=== PATIENT | male | born 1980 | race Caucasian/White ===

== ENCOUNTER 2016-11-08 16:49 | Inpatient (IN) | payer MEDICAID ==
[~2016-11-08] VITALS: Ht 180.3 cm; Wt 84.4 kg
[2016-11-08] MEDS ORDERED: PROZ10 PO (16:51)
[2016-11-08 17:55] LABS: BASOPHILS % (AUTO) 0.3 % (0.0-2.0); EOSINOPHILS % (AUTO) 1.5 % (1.0-6.0); HEMATOCRIT 45.7 % (41-53); HEMOGLOBIN 14.9 g/dL (13.5-17.5); LYMPHOCYTES # (AUTO) 2.6 K/uL (1.0-4.8); LYMPHOCYTES % (AUTO) 18.7 % (22.0-44.0); MEAN CORPUSCULAR HGB CONC 32.6 G/dL (31.0-37.0); MEAN CORPUSCULAR VOLUME 86 fL (80-100); MONOCYTES # (AUTO) 0.6 K/uL (0.1-1.0); MONOCYTES % (AUTO) 4.5 % (2.0-9.0); NEUTROPHILS # (AUTO) 10.2 K/uL (1.8-7.7); PLATELET COUNT (AUTO) 219 K/uL (150-450); RED BLOOD CELL COUNT(AUTO) 5.32 MIL/uL (4.50-5.90); RED CELL DISTRIBUTION WIDTH 13.2 % (11.5-14.5); WHITE BLOOD COUNT (AUTO) 13.7 K/uL (4.5-11.0)
[2016-11-08 18:00] LABS: ANION GAP 8 mmol/L (8-16); CALCIUM, TOTAL 9.3 mg/dL (8.8-10.5); CARBON DIOXIDE 29 mmol/L (22-29); CHLORIDE 100 mmol/L (98-107); CREATININE 1.13 mg/dL (0.60-1.30); GLOMERULAR FILTR. RATE CALC > 60 mL/min (>60); POTASSIUM 4.3 mmol/L (3.5-5.1); SODIUM SERUM 137 mmol/L (136-145); UREA NITROGEN, BLOOD 13 mg/dL (7-18)
[2016-11-08 18:06] LABS: ALANINE AMINOTRANSFERASE 32 U/L (12-78); ALBUMIN 4.3 g/dL (3.4-5.0); ASPARTATE AMINOTRANSFERASE 23 U/L (15-37); BILIRUBIN,TOTAL 0.5 mg/dL (0.1-1.0); TOTAL PROTEIN, SERUM 7.7 g/dL (6.4-8.2)
[2016-11-08] MEDS: FLUoxetine HCL 10 MG CAPSULE PO SCH (20:21)
[2016-11-08] MEDS: LORazepam 2 MG TABLET PO PRN (20:23)
[2016-11-08 21:11] VITALS: BP 121/72
[2016-11-09 08:00] VITALS: BP 119/78
[2016-11-09] MEDS: FLUoxetine HCL 10 MG CAPSULE PO SCH (09:36)
[2016-11-09] MEDS: LORazepam 2 MG TABLET PO PRN ×2 (09:37→17:55)
[2016-11-09 16:47] VITALS: BP 126/93
[2016-11-09] MEDS: HALOPERIDOL 5 MG TABLET PO PRN (17:55)
[2016-11-10 08:01] VITALS: BP 120/78
[2016-11-10] MEDS: LORazepam 2 MG TABLET PO PRN ×2 (09:21→17:42)
[2016-11-10] MEDS: FLUoxetine HCL 10 MG CAPSULE PO SCH (09:21)
[2016-11-10] MEDS: HALOPERIDOL 5 MG TABLET PO PRN (19:56)
[2016-11-10 20:45] VITALS: BP 119/67
[2016-11-10] MEDS: ZOLPIDEM TARTRATE 10 MG TABLET PO PRN (21:34)
[2016-11-11] MEDS: HALOPERIDOL 5 MG TABLET PO PRN (09:39)
[2016-11-11] MEDS: LORazepam 2 MG TABLET PO PRN ×2 (09:39→16:06)
[2016-11-11] MEDS: FLUoxetine HCL 10 MG CAPSULE PO SCH (09:39)
[2016-11-11 11:00] VITALS: BP 107/59
[2016-11-11 16:51] VITALS: BP 118/71
[2016-11-12 09:23] VITALS: BP 109/63
[2016-11-12] MEDS: FLUoxetine HCL 10 MG CAPSULE PO SCH (09:24)
[2016-11-12] MEDS: LORazepam 2 MG TABLET PO PRN ×3 (09:24→19:10)
[2016-11-12] MEDS: HALOPERIDOL 5 MG TABLET PO PRN (14:47)
[2016-11-12] MEDS: ACETAMINOPHEN 325 MG TABLET PO PRN (16:43)
[2016-11-12 16:56] VITALS: BP 141/80
[2016-11-13 09:03] VITALS: BP 114/54
[2016-11-13 09:08] VITALS: BP 139/73
[2016-11-13] MEDS: FLUoxetine HCL 10 MG CAPSULE PO SCH (09:09)
[2016-11-13] MEDS: LORazepam 2 MG TABLET PO PRN ×3 (09:09→17:41)
[2016-11-13] MEDS: ACETAMINOPHEN 325 MG TABLET PO PRN (13:39)
[2016-11-13 20:10] VITALS: BP 122/74
[2016-11-13] MEDS: ZOLPIDEM TARTRATE 10 MG TABLET PO PRN (21:03)
[2016-11-14] MEDS: LORazepam 2 MG TABLET PO PRN (08:41)
[2016-11-14] MEDS: FLUoxetine HCL 10 MG CAPSULE PO SCH (08:41)
[2016-11-14 10:05] VITALS: BP 130/71
[2017-04-03] MEDS ORDERED: HYDR-4031 PO (12:59)
[2017-04-03] MEDS ORDERED: ARIP2 PO (12:59)
[2017-04-05] MEDS ORDERED: ARIP2 PO (16:34)
[2017-04-05] MEDS ORDERED: FLUO-191 PO (16:34)
== END 2016-11-14 14:15 | disposition home or self-care (01) | DRG 751 ==
LOC: EMS 16:52 → 3EI 20:51
DX: F33.2 Major depressive disorder, recurrent severe without psychotic features (principal); R45.851 Suicidal ideations; F17.210 Nicotine dependence, cigarettes, uncomplicated; Z79.899 Other long term (current) drug therapy; Z81.8 Family history of other mental and behavioral disorders
CPT/HCPCS: 99285; G0480

== ENCOUNTER 2016-11-18 20:38 | Emergency (ER) | payer MEDICAID ==
[~2016-11-18] VITALS: Ht 180.3 cm; Wt 88.6 kg
[~2016-11-18 20:38] MED LIST: PROZ10 PO
[2016-11-18 21:34] LABS: BASOPHILS % (AUTO) 0.5 % (0.0-2.0); EOSINOPHILS % (AUTO) 3.1 % (1.0-6.0); HEMATOCRIT 41.7 % (41-53); HEMOGLOBIN 13.6 g/dL (13.5-17.5); LYMPHOCYTES # (AUTO) 3.7 K/uL (1.0-4.8); LYMPHOCYTES % (AUTO) 31.6 % (22.0-44.0); MEAN CORPUSCULAR HEMOGLOBIN 27.9 pg (26.0-34.0); MEAN CORPUSCULAR HGB CONC 32.7 G/dL (31.0-37.0); MEAN CORPUSCULAR VOLUME 85 fL (80-100); MONOCYTES # (AUTO) 0.8 K/uL (0.1-1.0); MONOCYTES % (AUTO) 7.1 % (2.0-9.0); NEUTROPHILS # (AUTO) 6.8 K/uL (1.8-7.7); NEUTROPHILS % (AUTO) 57.7 % (40.0-70.0); PLATELET COUNT (AUTO) 231 K/uL (150-450); RED BLOOD CELL COUNT(AUTO) 4.89 MIL/uL (4.50-5.90); RED CELL DISTRIBUTION WIDTH 13.5 % (11.5-14.5); WHITE BLOOD COUNT (AUTO) 11.8 K/uL (4.5-11.0)
[2016-11-18 21:44] LABS: ANION GAP 12 mmol/L (8-16); CALCIUM, TOTAL 8.9 mg/dL (8.8-10.5); CARBON DIOXIDE 25 mmol/L (22-29); CHLORIDE 101 mmol/L (98-107); GLOMERULAR FILTR. RATE CALC > 60 mL/min (>60); POTASSIUM 3.3 mmol/L (3.5-5.1); SODIUM SERUM 138 mmol/L (136-145); UREA NITROGEN, BLOOD 22 mg/dL (7-18)
[2016-11-18 21:50] LABS: ALANINE AMINOTRANSFERASE 51 U/L (12-78); ASPARTATE AMINOTRANSFERASE 61 U/L (15-37); BILIRUBIN,TOTAL 0.6 mg/dL (0.1-1.0); TOTAL PROTEIN, SERUM 7.2 g/dL (6.4-8.2)
[2016-11-19] MEDS ORDERED: LORazepam 2 MG TABLET PO ONE (01:15)
[2016-11-19 01:26] VITALS: BP 126/80
[2017-04-03] MEDS ORDERED: HYDR-4031 PO (12:59)
[2017-04-03] MEDS ORDERED: ARIP2 PO (12:59)
[2017-04-05] MEDS ORDERED: FLUO-191 PO (16:34)
[2017-04-05] MEDS ORDERED: ARIP2 PO (16:34)
== END 2016-11-19 01:27 | disposition home or self-care (01) ==
LOC: EMS 20:39
DX: F41.9 Anxiety disorder, unspecified (principal); F32.9 Major depressive disorder, single episode, unspecified; F15.10 Other stimulant abuse, uncomplicated; F14.10 Cocaine abuse, uncomplicated; F17.210 Nicotine dependence, cigarettes, uncomplicated
CPT/HCPCS: 36415; 80053; 80307; 85025; 99284; G0480

== ENCOUNTER 2017-11-24 15:11 | Emergency (ER) | payer MEDICAID ==
[~2017-11-24] VITALS: Ht 193 cm; Wt 100.0 kg
[~2017-11-24 15:11] MED LIST changes: +ARIP2 PO; +FLUO-191 PO; -PROZ10 PO
[2017-11-24] MEDS ORDERED: SODIUM CHLORIDE 0.9% 1,000 ML IV ONE (17:00)
[2017-11-24] MEDS ORDERED: KETOROLAC TROMETHAMINE 30 MG/ML VIAL IVP ONE (17:00)
[2017-11-24 17:18] LABS: BASOPHILS % (AUTO) 0.9 % (0.0-2.0); EOSINOPHILS % (AUTO) 2.3 % (1.0-6.0); HEMATOCRIT 41.3 % (41-53); HEMOGLOBIN 13.8 g/dL (13.5-17.5); LYMPHOCYTES % (AUTO) 33.7 % (22.0-44.0); MEAN CORPUSCULAR HEMOGLOBIN 27.7 pg (26.0-34.0); MEAN CORPUSCULAR HGB CONC 33.4 G/dL (31.0-37.0); MEAN CORPUSCULAR VOLUME 83 fL (80-100); MONOCYTES # (AUTO) 0.5 K/uL (0.1-1.0); MONOCYTES % (AUTO) 5.8 % (2.0-9.0); NEUTROPHILS % (AUTO) 57.3 % (40.0-70.0); PLATELET COUNT (AUTO) 218 K/uL (150-450); RED BLOOD CELL COUNT(AUTO) 4.98 MIL/uL (4.50-5.90); RED CELL DISTRIBUTION WIDTH 14.6 % (11.5-14.5)
[2017-11-24] MEDS ORDERED: LITH600 PO (17:26)
[2017-11-24] MEDS ORDERED: LITH300C3 PO (17:26)
[2017-11-24 17:29] LABS: ANION GAP 5 mmol/L (8-16); CALCIUM, TOTAL 8.6 mg/dL (8.8-10.5); CARBON DIOXIDE 30 mmol/L (22-29); CHLORIDE 104 mmol/L (98-107); CREATININE 0.93 mg/dL (0.60-1.30); GLOMERULAR FILTR. RATE CALC > 60 mL/min (>60); GLUCOSE,RANDOM 94 mg/dL (70-110); POTASSIUM 4.4 mmol/L (3.5-5.1); SODIUM SERUM 139 mmol/L (136-145); UREA NITROGEN, BLOOD 13 mg/dL (7-18)
[2017-11-24 17:35] LABS: ALANINE AMINOTRANSFERASE 35 U/L (12-78); ALBUMIN 3.9 g/dL (3.4-5.0); ALKALINE PHOSPHATASE 79 U/L (46-116); ASPARTATE AMINOTRANSFERASE 22 U/L (15-37); BILIRUBIN,TOTAL 0.5 mg/dL (0.1-1.0); TOTAL PROTEIN, SERUM 6.8 g/dL (6.4-8.2)
[2017-11-24 17:38] LABS: LITHIUM 0.22 mmol/L (0.60-1.20)
[2017-11-24] MEDS ORDERED: METOCLOPRAMIDE HCL 5 MG/ML 2 ML VIAL IVP ONE (19:00)
[2017-11-24] MEDS ORDERED: DiphenhydrAMINE HCL 50 MG/ML VIAL IVP ONE (19:00)
[2017-11-24 19:42] VITALS: BP 124/83
== END 2017-11-24 19:46 | disposition home or self-care (01) ==
LOC: EMS 15:15
DX: R51 Headache (principal); I10 Essential (primary) hypertension; Z59.0 Homelessness; F17.210 Nicotine dependence, cigarettes, uncomplicated
CPT/HCPCS: 36415; 70450; 80053; 80178; 85025; 93005; 96361; 96374; 96375; 99285; 99406; J1200; J1885; J2765; J7030

== ENCOUNTER 2017-11-27 22:17 | Emergency (ER) | payer MEDICAID ==
[~2017-11-27] VITALS: Ht 180.3 cm; Wt 82.7 kg
[~2017-11-27 22:17] MED LIST changes: +LITH300C3 PO; +LITH600 PO
[2017-11-27 22:42] VITALS: BP 129/77
[2017-11-27] MEDS ORDERED: ACETAMINOPHEN 500 MG TABLET PO ONE (22:45)
[2017-11-27] MEDS ORDERED: IBUPROFEN 800 MG TABLET PO ONE (22:45)
[2017-11-27] MEDS ORDERED: DEXAMETHASONE 4 MG TABLET PO ONE (22:45)
== END 2017-11-27 23:37 | disposition home or self-care (01) ==
LOC: EMS 22:19
DX: J02.9 Acute pharyngitis, unspecified (principal); Z59.0 Homelessness; F17.210 Nicotine dependence, cigarettes, uncomplicated; F15.10 Other stimulant abuse, uncomplicated
CPT/HCPCS: 87430; 99284; J8540

== ENCOUNTER 2017-12-15 21:25 | Emergency (ER) | payer MEDICAID ==
[~2017-12-15] VITALS: Ht 180.3 cm; Wt 82.5 kg
[2017-12-15 22:30] VITALS: BP 137/88
[2017-12-15] MEDS ORDERED: ALBUTEROL SULFATE 5 MG/ML 20 ML NEB SOLN [BULK] NEB ONE (22:30)
[2017-12-15] MEDS ORDERED: IPRATROPIUM BROMIDE 0.5 MG/2.5 ML NEB SOLUTION NEB ONE (22:30)
[2017-12-15] MEDS ORDERED: KETOROLAC TROMETHAMINE 60 MG/2 ML VIAL IM ONE (22:30)
[2017-12-15] MEDS ORDERED: ALBUTEROL SULFATE HFA 90 MCG/PUFF 8 GM INHALER IH ONE (23:00)
[2017-12-15] MEDS ORDERED: PredniSONE 20 MG TABLET PO ONE (23:15)
== END 2017-12-15 23:25 | disposition home or self-care (01) ==
LOC: EMS 21:27
DX: J06.9 Acute upper respiratory infection, unspecified (principal); J02.9 Acute pharyngitis, unspecified; H92.09 Otalgia, unspecified ear; R51 Headache; F17.210 Nicotine dependence, cigarettes, uncomplicated; F19.90 Other psychoactive substance use, unspecified, uncomplicated; F14.90 Cocaine use, unspecified, uncomplicated; Z59.0 Homelessness
CPT/HCPCS: 71045; 94640; 96372; 99284; 99406; J1885; J7512; J7611; J3535

== ENCOUNTER 2018-03-01 20:55 | Emergency (ER) | payer MEDICAID ==
[~2018-03-01] VITALS: Ht 180.3 cm; Wt 84.1 kg
[2018-03-01 21:28] VITALS: BP 136/86
== END 2018-03-01 22:16 | disposition home or self-care (01) ==
LOC: EMS 21:04
DX: J02.9 Acute pharyngitis, unspecified (principal); F32.9 Major depressive disorder, single episode, unspecified; F15.10 Other stimulant abuse, uncomplicated; F17.210 Nicotine dependence, cigarettes, uncomplicated; F14.10 Cocaine abuse, uncomplicated; Z59.0 Homelessness; Z79.899 Other long term (current) drug therapy
CPT/HCPCS: 99283

== ENCOUNTER 2019-03-19 11:18 | Emergency (ER) | payer MEDICAID ==
[~2019-03-19] VITALS: Ht 180.3 cm; Wt 95.5 kg
[2019-03-19] MEDS ORDERED: SERT50TA12 PO (11:29)
[2019-03-19] MEDS ORDERED: RISP1 PO (11:29)
[2019-03-19 12:34] LABS: BASOPHILS % (AUTO) 0.9 % (0.0-2.0); EOSINOPHILS % (AUTO) 2.7 % (1.0-6.0); HEMATOCRIT 42.7 % (41-53); LYMPHOCYTES # (AUTO) 2.8 K/uL (1.0-4.8); LYMPHOCYTES % (AUTO) 31.2 % (22.0-44.0); MEAN CORPUSCULAR HEMOGLOBIN 27.7 pg (26.0-34.0); MEAN CORPUSCULAR HGB CONC 32.9 G/dL (31.0-37.0); MEAN CORPUSCULAR VOLUME 84 fL (80-100); MONOCYTES # (AUTO) 0.5 K/uL (0.1-1.0); NEUTROPHILS # (AUTO) 5.4 K/uL (1.8-7.7); NEUTROPHILS % (AUTO) 59.2 % (40.0-70.0); PLATELET COUNT (AUTO) 246 K/uL (150-450); RED BLOOD CELL COUNT(AUTO) 5.08 MIL/uL (4.50-5.90); RED CELL DISTRIBUTION WIDTH 13.8 % (11.5-14.5)
[2019-03-19 12:45] LABS: ANION GAP 8 mmol/L (8-16); CALCIUM, TOTAL 8.4 mg/dL (8.8-10.5); CARBON DIOXIDE 28 mmol/L (22-29); CHLORIDE 104 mmol/L (98-107); CREATININE 1.01 mg/dL (0.60-1.30); GLOMERULAR FILTR. RATE CALC > 60 mL/min (>60); GLUCOSE,RANDOM 113 mg/dL (70-110); POTASSIUM 4.4 mmol/L (3.5-5.1); SODIUM SERUM 140 mmol/L (136-145); UREA NITROGEN, BLOOD 19 mg/dL (7-18)
[2019-03-19 12:47] LABS: AMPHET/METH SCREEN,URINE NEGATIVE (NEGATIVE); BARBITURATE SCREEN, URINE NEGATIVE (NEGATIVE); BENZODIAZEPINES SCREEN,URINE NEGATIVE (NEGATIVE); CANNABINOID SCREEN,URINE NEGATIVE (NEGATIVE); COCAINE SCREEN,URINE NEGATIVE (NEGATIVE); METHADONE SCREEN, URINE NEGATIVE (NEGATIVE); OPIATE SCREEN,URINE NEGATIVE (NEGATIVE)
[2019-03-19 12:48] LABS: PHENCYCLIDINE SCREEN,URINE NEGATIVE (NEGATIVE)
[2019-03-19 12:52] LABS: ALANINE AMINOTRANSFERASE 47 U/L (12-78); ALBUMIN 3.5 g/dL (3.4-5.0); ALKALINE PHOSPHATASE 96 U/L (46-116); ASPARTATE AMINOTRANSFERASE 22 U/L (15-37); BILIRUBIN,TOTAL 0.3 mg/dL (0.1-1.0); TOTAL PROTEIN, SERUM 6.6 g/dL (6.4-8.2)
[2019-03-19 13:40] VITALS: BP 115/65
== END 2019-03-19 13:50 | disposition home or self-care (01) ==
LOC: EMS 11:19
DX: F10.10 Alcohol abuse, uncomplicated (principal); F32.9 Major depressive disorder, single episode, unspecified; F17.210 Nicotine dependence, cigarettes, uncomplicated; F11.90 Opioid use, unspecified, uncomplicated; F15.90 Other stimulant use, unspecified, uncomplicated; Z59.0 Homelessness; Z79.899 Other long term (current) drug therapy; Y90.0 Blood alcohol level of less than 20 mg/100 ml
CPT/HCPCS: 36415; 80053; 80307; 85025; 99283; G0480

== ENCOUNTER 2019-09-04 11:31 | Inpatient (IN) | payer MEDICAID ==
[~2019-09-04] VITALS: Ht 182.9 cm; Wt 89.6 kg
[~2019-09-04 11:31] MED LIST changes: -ARIP2 PO; -FLUO-191 PO; -LITH300C3 PO; -LITH600 PO; +RISP1 PO; +SERT50TA12 PO
[2019-09-04] MEDS ORDERED: ACETAMINOPHEN 500 MG TABLET PO ONE (12:30)
[2019-09-04 12:38] LABS: BASOPHILS % (AUTO) 0.7 % (0.0-2.0); EOSINOPHILS % (AUTO) 3.4 % (1.0-6.0); HEMATOCRIT 40.2 % (41-53); HEMOGLOBIN 13.3 g/dL (13.5-17.5); LYMPHOCYTES # (AUTO) 2.2 K/uL (1.0-4.8); LYMPHOCYTES % (AUTO) 38.8 % (22.0-44.0); MEAN CORPUSCULAR HEMOGLOBIN 27.5 pg (26.0-34.0); MEAN CORPUSCULAR HGB CONC 33.1 G/dL (31.0-37.0); MEAN CORPUSCULAR VOLUME 83 fL (80-100); MONOCYTES # (AUTO) 0.4 K/uL (0.1-1.0); MONOCYTES % (AUTO) 7.7 % (2.0-9.0); NEUTROPHILS # (AUTO) 2.7 K/uL (1.8-7.7); NEUTROPHILS % (AUTO) 49.4 % (40.0-70.0); PLATELET COUNT (AUTO) 221 K/uL (150-450); RED BLOOD CELL COUNT(AUTO) 4.83 MIL/uL (4.50-5.90); RED CELL DISTRIBUTION WIDTH 14.7 % (11.5-14.5)
[2019-09-04 12:50] LABS: ANION GAP 5 mmol/L (8-16); CALCIUM, TOTAL 8.4 mg/dL (8.8-10.5); CARBON DIOXIDE 30 mmol/L (22-29); CHLORIDE 103 mmol/L (98-107); CREATININE 0.88 mg/dL (0.60-1.30); GLOMERULAR FILTR. RATE CALC > 60 mL/min (>60); GLUCOSE,RANDOM 88 mg/dL (70-110); SODIUM SERUM 138 mmol/L (136-145); UREA NITROGEN, BLOOD 21 mg/dL (7-18)
[2019-09-04 12:57] LABS: ALANINE AMINOTRANSFERASE 98 U/L (12-78); ALBUMIN 3.7 g/dL (3.4-5.0); ALKALINE PHOSPHATASE 86 U/L (46-116); ASPARTATE AMINOTRANSFERASE 130 U/L (15-37); BILIRUBIN,TOTAL 1.2 mg/dL (0.1-1.0); TOTAL PROTEIN, SERUM 6.9 g/dL (6.4-8.2)
[2019-09-04] MEDS ORDERED: ZOLPIDEM TARTRATE 10 MG TABLET PO PRN (15:15)
[2019-09-04 18:20] VITALS: BP 115/71
[2019-09-05 07:45] LABS: CHOL/HDL RATIO 4.9 (4.2-7.3)
[2019-09-05 08:44] VITALS: BP 115/47
[2019-09-05 10:00] VITALS: BP 111/59
[2019-09-05] MEDS ORDERED: QUEtiapine FUMARATE 25 MG TABLET PO SCH (21:00)
[2019-09-06 08:36] VITALS: BP 99/59
[2019-09-06] MEDS ORDERED: BuPROPion HCL XL 150 MG ER TABLET PO SCH (09:00)
[2019-09-06 19:15] VITALS: BP 130/71
[2019-09-06] MEDS: QUEtiapine FUMARATE 100 MG TABLET PO SCH (20:51)
[2019-09-07] MEDS: BuPROPion HCL XL 150 MG ER TABLET PO SCH (09:04)
[2019-09-07 10:16] VITALS: BP 109/60
[2019-09-07 18:00] VITALS: BP 116/71
[2019-09-07] MEDS: QUEtiapine FUMARATE 100 MG TABLET PO SCH (20:34)
[2019-09-08 08:35] VITALS: BP 113/66
[2019-09-08] MEDS: BuPROPion HCL XL 150 MG ER TABLET PO SCH (09:33)
[2019-09-08] MEDS: QUEtiapine FUMARATE 100 MG TABLET PO PRN (16:22)
[2019-09-08] MEDS: LORazepam 2 MG TABLET PO PRN (16:22)
[2019-09-08 16:53] VITALS: BP 118/80
[2019-09-08] MEDS: QUEtiapine FUMARATE 100 MG TABLET PO SCH (20:20)
[2019-09-09 09:26] VITALS: BP 114/73
[2019-09-09] MEDS: BuPROPion HCL XL 150 MG ER TABLET PO SCH (09:49)
[2019-09-09] MEDS: QUEtiapine FUMARATE 100 MG TABLET PO PRN (16:11)
[2019-09-09] MEDS: LORazepam 2 MG TABLET PO PRN (16:11)
[2019-09-09] MEDS: QUEtiapine FUMARATE 100 MG TABLET PO SCH (20:27)
[2019-09-09 20:38] VITALS: BP 121/65
[2019-09-10 09:38] VITALS: BP 117/73
[2019-09-10] MEDS: BuPROPion HCL XL 150 MG ER TABLET PO SCH (09:39)
[2019-09-10 17:00] VITALS: BP 121/72
[2019-09-10] MEDS: LORazepam 2 MG TABLET PO PRN (19:20)
[2019-09-10] MEDS: QUEtiapine FUMARATE 100 MG TABLET PO SCH (20:21)
[2019-09-10 21:01] VITALS: BP 137/76
[2019-09-11] MEDS: BuPROPion HCL XL 150 MG ER TABLET PO SCH (09:41)
[2019-09-11 10:13] VITALS: BP 112/80
[2019-09-11 16:46] VITALS: BP 127/76
[2019-09-11] MEDS: LORazepam 2 MG TABLET PO PRN (19:05)
[2019-09-11] MEDS: QUEtiapine FUMARATE 100 MG TABLET PO SCH (20:37)
[2019-09-12] MEDS: BuPROPion HCL XL 150 MG ER TABLET PO SCH (08:06)
[2019-09-12 09:20] VITALS: BP 106/69
[2019-09-12 16:21] VITALS: BP 123/84
[2019-09-12] MEDS: LORazepam 2 MG TABLET PO PRN (18:41)
[2019-09-12] MEDS: QUEtiapine FUMARATE 100 MG TABLET PO SCH (20:26)
[2019-09-13] MEDS: BuPROPion HCL XL 150 MG ER TABLET PO SCH (09:05)
[2019-09-13] MEDS ORDERED: BUPR-93 PO (09:35)
[2019-09-13] MEDS ORDERED: QUET100T PO (09:37)
== END 2019-09-13 09:45 | disposition home or self-care (01) | DRG 885 ==
LOC: EMS 11:38 → 3EI 16:00
PROVIDERS: ADMIT Psychiatry & Neurology Psychiatry; ATTEND Psychiatry & Neurology Psychiatry
DX: F33.2 Major depressive disorder, recurrent severe without psychotic features (principal); R45.851 Suicidal ideations; F19.20 Other psychoactive substance dependence, uncomplicated; D64.9 Anemia, unspecified; R45.87 Impulsiveness; R41.843 Psychomotor deficit; F12.90 Cannabis use, unspecified, uncomplicated; F15.90 Other stimulant use, unspecified, uncomplicated; Z59.0 Homelessness; Z87.891 Personal history of nicotine dependence
CPT/HCPCS: G0480

== ENCOUNTER 2019-10-03 14:34 | Inpatient (IN) | payer MEDICAID ==
[~2019-10-03] VITALS: Ht 180.3 cm; Wt 87.9 kg
[~2019-10-03 14:34] MED LIST changes: +BUPR-93 PO; +QUET100T PO; -RISP1 PO; -SERT50TA12 PO
[2019-10-03] MEDS ORDERED: SULFAMETHOX/TRIMETH DS 800-160 MG/TABLET PO ONE (15:30)
[2019-10-03] MEDS ORDERED: CEPHALEXIN MONOHYDRATE 500 MG CAPSULE PO ONE (15:30)
[2019-10-03 16:20] LABS: BASOPHILS % (AUTO) 0.6 % (0.0-2.0); EOSINOPHILS % (AUTO) 2.9 % (1.0-6.0); HEMATOCRIT 40.7 % (41-53); HEMOGLOBIN 13.2 g/dL (13.5-17.5); LYMPHOCYTES # (AUTO) 2.5 K/uL (1.0-4.8); LYMPHOCYTES % (AUTO) 34.3 % (22.0-44.0); MEAN CORPUSCULAR HEMOGLOBIN 27.7 pg (26.0-34.0); MEAN CORPUSCULAR HGB CONC 32.6 G/dL (31.0-37.0); MEAN CORPUSCULAR VOLUME 85 fL (80-100); MONOCYTES # (AUTO) 0.6 K/uL (0.1-1.0); MONOCYTES % (AUTO) 7.9 % (2.0-9.0); NEUTROPHILS # (AUTO) 3.9 K/uL (1.8-7.7); NEUTROPHILS % (AUTO) 54.3 % (40.0-70.0); PLATELET COUNT (AUTO) 322 K/uL (150-450); RED BLOOD CELL COUNT(AUTO) 4.78 MIL/uL (4.50-5.90); RED CELL DISTRIBUTION WIDTH 15.1 % (11.5-14.5)
[2019-10-03 16:33] LABS: ANION GAP 7 mmol/L (8-16); CALCIUM, TOTAL 8.7 mg/dL (8.8-10.5); CARBON DIOXIDE 29 mmol/L (22-29); CHLORIDE 102 mmol/L (98-107); CREATININE 1.14 mg/dL (0.60-1.30); GLOMERULAR FILTR. RATE CALC > 60 mL/min (>60); GLUCOSE,RANDOM 100 mg/dL (70-110); SODIUM SERUM 138 mmol/L (136-145); UREA NITROGEN, BLOOD 14 mg/dL (7-18)
[2019-10-03 16:39] LABS: ALANINE AMINOTRANSFERASE 66 U/L (12-78); ALBUMIN 3.4 g/dL (3.4-5.0); ALKALINE PHOSPHATASE 94 U/L (46-116); ASPARTATE AMINOTRANSFERASE 58 U/L (15-37); BILIRUBIN,TOTAL 0.2 mg/dL (0.1-1.0)
[2019-10-03] MEDS ORDERED: ZOLPIDEM TARTRATE 10 MG TABLET PO PRN (16:45)
[2019-10-03 16:50] LABS: ACETAMINOPHEN < 2 mcg/mL (10-30)
[2019-10-03 17:27] LABS: SALICYLATE < 2.8 mg/dL (2.8-20.0)
[2019-10-03] MEDS: QUEtiapine FUMARATE 100 MG TABLET PO SCH (20:07)
[2019-10-03 22:25] VITALS: BP 116/76
[2019-10-04 08:54] VITALS: BP 122/76
[2019-10-04] MEDS: BuPROPion HCL XL 150 MG ER TABLET PO SCH (09:30)
[2019-10-04 16:00] VITALS: BP 99/64
[2019-10-04] MEDS: PERMETHRIN 5% 60 GM CREAM TP ONE ×2 (18:30→19:26)
[2019-10-04] MEDS ORDERED: ACETAMINOPHEN 325 MG TABLET PO PRN (20:00)
[2019-10-04] MEDS: QUEtiapine FUMARATE 100 MG TABLET PO SCH (20:40)
[2019-10-05 08:30] VITALS: BP 111/61
[2019-10-05] MEDS: BuPROPion HCL XL 150 MG ER TABLET PO SCH (08:51)
[2019-10-05] MEDS: SULFAMETHOX/TRIMETH DS 800-160 MG/TABLET PO SCH ×2 (08:51→17:05)
[2019-10-05] MEDS ORDERED: BISACODYL 10 MG RECTAL RECTAL SUPPOSITORY PR ONE (10:30)
[2019-10-05] MEDS ORDERED: POLYETHYLENE GLYCOL 3350 17 GM PACKET PO PRN (11:00)
[2019-10-05] MEDS: DOCUSATE SODIUM 100 MG CAPSULE PO SCH (17:05)
[2019-10-05] MEDS: POLYETHYLENE GLYCOL 3350 17 GM PACKET PO SCH (17:06)
[2019-10-05 19:33] VITALS: BP 109/76
[2019-10-05] MEDS: QUEtiapine FUMARATE 100 MG TABLET PO SCH (20:21)
[2019-10-06] MEDS: BuPROPion HCL XL 150 MG ER TABLET PO SCH (08:43)
[2019-10-06] MEDS: POLYETHYLENE GLYCOL 3350 17 GM PACKET PO SCH ×2 (08:43→17:01)
[2019-10-06] MEDS: SULFAMETHOX/TRIMETH DS 800-160 MG/TABLET PO SCH ×2 (08:43→17:01)
[2019-10-06] MEDS: DOCUSATE SODIUM 100 MG CAPSULE PO SCH ×2 (08:43→17:01)
[2019-10-06 08:50] VITALS: BP 134/79
[2019-10-06 19:25] VITALS: BP 103/50
[2019-10-06] MEDS: QUEtiapine FUMARATE 100 MG TABLET PO SCH (20:26)
[2019-10-07] MEDS: SULFAMETHOX/TRIMETH DS 800-160 MG/TABLET PO SCH ×2 (09:28→17:52)
[2019-10-07] MEDS: BuPROPion HCL XL 150 MG ER TABLET PO SCH (09:28)
[2019-10-07] MEDS: DOCUSATE SODIUM 100 MG CAPSULE PO SCH ×2 (09:28→16:30)
[2019-10-07] MEDS: POLYETHYLENE GLYCOL 3350 17 GM PACKET PO SCH ×2 (09:29→16:29)
[2019-10-07 10:54] VITALS: BP 138/71
[2019-10-07] MEDS: LORazepam 2 MG TABLET PO PRN (15:05)
[2019-10-07 16:00] VITALS: BP 126/86
[2019-10-07] MEDS: QUEtiapine FUMARATE 100 MG TABLET PO SCH (20:07)
[2019-10-08 08:32] VITALS: BP 105/62
[2019-10-08] MEDS: DOCUSATE SODIUM 100 MG CAPSULE PO SCH ×2 (10:09→16:26)
[2019-10-08] MEDS: SULFAMETHOX/TRIMETH DS 800-160 MG/TABLET PO SCH ×2 (10:09→16:26)
[2019-10-08] MEDS: LORazepam 2 MG TABLET PO PRN (10:09)
[2019-10-08] MEDS: BuPROPion HCL XL 150 MG ER TABLET PO SCH (10:10)
[2019-10-08] MEDS: QUEtiapine FUMARATE 100 MG TABLET PO PRN (10:10)
[2019-10-08] MEDS: POLYETHYLENE GLYCOL 3350 17 GM PACKET PO SCH ×2 (10:10→16:27)
[2019-10-08 17:53] VITALS: BP 126/73
[2019-10-08] MEDS ORDERED: ONDANSETRON HCL 4 MG TABLET PO PRN (18:30)
[2019-10-08] MEDS: QUEtiapine FUMARATE 100 MG TABLET PO SCH (20:39)
[2019-10-09 08:30] VITALS: BP 121/60
[2019-10-09] MEDS: DOCUSATE SODIUM 100 MG CAPSULE PO SCH ×2 (09:00→17:00)
[2019-10-09] MEDS: POLYETHYLENE GLYCOL 3350 17 GM PACKET PO SCH ×2 (09:01→17:00)
[2019-10-09] MEDS: BuPROPion HCL XL 150 MG ER TABLET PO SCH (09:01)
[2019-10-09] MEDS: SULFAMETHOX/TRIMETH DS 800-160 MG/TABLET PO SCH ×2 (09:01→18:11)
[2019-10-09] MEDS: LORazepam 2 MG TABLET PO PRN ×2 (09:03→16:24)
[2019-10-09 16:55] VITALS: BP 121/84
[2019-10-09] MEDS: BACITRACIN 28.4 GM OINTMENT TP SCH (17:00)
[2019-10-09] MEDS: QUEtiapine FUMARATE 100 MG TABLET PO SCH (20:35)
[2019-10-10 08:37] VITALS: BP 129/70
[2019-10-10] MEDS: DOCUSATE SODIUM 100 MG CAPSULE PO SCH ×2 (10:17→16:16)
[2019-10-10] MEDS: BuPROPion HCL XL 150 MG ER TABLET PO SCH (10:17)
[2019-10-10] MEDS: SULFAMETHOX/TRIMETH DS 800-160 MG/TABLET PO SCH ×2 (10:17→18:58)
[2019-10-10] MEDS: POLYETHYLENE GLYCOL 3350 17 GM PACKET PO SCH ×2 (10:18→16:16)
[2019-10-10] MEDS: BACITRACIN 28.4 GM OINTMENT TP SCH ×2 (10:18→16:16)
[2019-10-10] MEDS: LORazepam 2 MG TABLET PO PRN (16:15)
[2019-10-10 18:59] VITALS: BP 139/84
[2019-10-10] MEDS: QUEtiapine FUMARATE 100 MG TABLET PO SCH (20:09)
[2019-10-11 08:31] VITALS: BP 110/71
[2019-10-11] MEDS: POLYETHYLENE GLYCOL 3350 17 GM PACKET PO SCH ×2 (10:58→16:09)
[2019-10-11] MEDS: BuPROPion HCL XL 150 MG ER TABLET PO SCH (10:58)
[2019-10-11] MEDS: QUEtiapine FUMARATE 100 MG TABLET PO PRN ×2 (10:58→16:09)
[2019-10-11] MEDS: LORazepam 2 MG TABLET PO PRN ×2 (10:58→16:09)
[2019-10-11] MEDS: BACITRACIN 28.4 GM OINTMENT TP SCH ×2 (10:58→16:09)
[2019-10-11] MEDS: SULFAMETHOX/TRIMETH DS 800-160 MG/TABLET PO SCH ×2 (10:58→18:08)
[2019-10-11] MEDS: DOCUSATE SODIUM 100 MG CAPSULE PO SCH ×2 (10:59→16:09)
[2019-10-11] MEDS: QUEtiapine FUMARATE 100 MG TABLET PO SCH (20:52)
[2019-10-11 21:34] VITALS: BP 114/57
[2019-10-12 09:35] VITALS: BP 106/59
[2019-10-12] MEDS: BuPROPion HCL XL 150 MG ER TABLET PO SCH (09:39)
[2019-10-12] MEDS: SULFAMETHOX/TRIMETH DS 800-160 MG/TABLET PO SCH ×2 (09:39→17:43)
[2019-10-12] MEDS: POLYETHYLENE GLYCOL 3350 17 GM PACKET PO SCH ×2 (09:39→16:07)
[2019-10-12] MEDS: DOCUSATE SODIUM 100 MG CAPSULE PO SCH ×2 (09:40→16:07)
[2019-10-12] MEDS: BACITRACIN 28.4 GM OINTMENT TP SCH ×2 (09:41→16:07)
[2019-10-12] MEDS: LORazepam 2 MG TABLET PO PRN (16:06)
[2019-10-12] MEDS: QUEtiapine FUMARATE 100 MG TABLET PO PRN (16:06)
[2019-10-12 17:32] VITALS: BP 114/87
[2019-10-12] MEDS: QUEtiapine FUMARATE 100 MG TABLET PO SCH (20:16)
[2019-10-13] MEDS: DOCUSATE SODIUM 100 MG CAPSULE PO SCH ×2 (08:34→16:02)
[2019-10-13] MEDS: SULFAMETHOX/TRIMETH DS 800-160 MG/TABLET PO SCH ×2 (08:35→18:47)
[2019-10-13] MEDS: POLYETHYLENE GLYCOL 3350 17 GM PACKET PO SCH ×2 (08:35→16:01)
[2019-10-13] MEDS: BuPROPion HCL XL 150 MG ER TABLET PO SCH (08:35)
[2019-10-13] MEDS: BACITRACIN 28.4 GM OINTMENT TP SCH ×2 (08:35→16:01)
[2019-10-13 09:19] VITALS: BP 128/60
[2019-10-13] MEDS: LORazepam 2 MG TABLET PO PRN (14:08)
[2019-10-13] MEDS: QUEtiapine FUMARATE 100 MG TABLET PO PRN (16:02)
[2019-10-13 16:43] VITALS: BP 114/66
[2019-10-13] MEDS: QUEtiapine FUMARATE 100 MG TABLET PO SCH (20:09)
[2019-10-14 09:43] VITALS: BP 109/75
[2019-10-14] MEDS: DOCUSATE SODIUM 100 MG CAPSULE PO SCH ×2 (09:48→16:59)
[2019-10-14] MEDS: SULFAMETHOX/TRIMETH DS 800-160 MG/TABLET PO SCH ×2 (09:48→17:21)
[2019-10-14] MEDS: BACITRACIN 28.4 GM OINTMENT TP SCH ×2 (09:48→16:59)
[2019-10-14] MEDS: BuPROPion HCL XL 150 MG ER TABLET PO SCH (09:48)
[2019-10-14] MEDS: POLYETHYLENE GLYCOL 3350 17 GM PACKET PO SCH ×2 (09:48→16:59)
[2019-10-14 16:49] VITALS: BP 117/73
[2019-10-14] MEDS: QUEtiapine FUMARATE 100 MG TABLET PO SCH (20:16)
[2019-10-15] MEDS: POLYETHYLENE GLYCOL 3350 17 GM PACKET PO SCH ×2 (09:09→16:43)
[2019-10-15] MEDS: DOCUSATE SODIUM 100 MG CAPSULE PO SCH ×2 (09:09→16:43)
[2019-10-15] MEDS: BuPROPion HCL XL 150 MG ER TABLET PO SCH (09:09)
[2019-10-15] MEDS: BACITRACIN 28.4 GM OINTMENT TP SCH ×2 (09:13→16:45)
[2019-10-15 09:45] VITALS: BP 108/54
[2019-10-15 18:40] VITALS: BP 124/90
[2019-10-15] MEDS: QUEtiapine FUMARATE 100 MG TABLET PO SCH (20:05)
[2019-10-16] MEDS: DOCUSATE SODIUM 100 MG CAPSULE PO SCH ×2 (09:03→16:06)
[2019-10-16] MEDS: BuPROPion HCL XL 150 MG ER TABLET PO SCH (09:03)
[2019-10-16] MEDS: POLYETHYLENE GLYCOL 3350 17 GM PACKET PO SCH ×2 (09:03→16:06)
[2019-10-16] MEDS: BACITRACIN 28.4 GM OINTMENT TP SCH ×2 (09:04→16:05)
[2019-10-16 10:30] VITALS: BP 114/58
[2019-10-16] MEDS: LORazepam 2 MG TABLET PO PRN (13:54)
[2019-10-16 19:04] VITALS: BP 124/70
[2019-10-16] MEDS: QUEtiapine FUMARATE 100 MG TABLET PO SCH ×2 (19:26→20:54)
[2019-10-17] MEDS: DOCUSATE SODIUM 100 MG CAPSULE PO SCH ×2 (08:25→16:49)
[2019-10-17] MEDS: BuPROPion HCL XL 150 MG ER TABLET PO SCH (08:25)
[2019-10-17] MEDS: POLYETHYLENE GLYCOL 3350 17 GM PACKET PO SCH ×2 (08:27→16:49)
[2019-10-17] MEDS: BACITRACIN 28.4 GM OINTMENT TP SCH ×2 (08:31→16:49)
[2019-10-17 08:49] VITALS: BP 103/55
[2019-10-17] MEDS: LORazepam 2 MG TABLET PO PRN ×2 (12:18→16:49)
[2019-10-17 19:00] VITALS: BP 134/77
[2019-10-17] MEDS: QUEtiapine FUMARATE 100 MG TABLET PO SCH (20:12)
[2019-10-18] MEDS: POLYETHYLENE GLYCOL 3350 17 GM PACKET PO SCH (09:00)
[2019-10-18] MEDS: DOCUSATE SODIUM 100 MG CAPSULE PO SCH (09:00)
[2019-10-18] MEDS: BuPROPion HCL XL 150 MG ER TABLET PO SCH (09:10)
[2019-10-18] MEDS: BACITRACIN 28.4 GM OINTMENT TP SCH (09:11)
[2019-10-18 14:59] VITALS: BP 147/91
== END 2019-10-18 13:30 | disposition home or self-care (01) | DRG 885 ==
LOC: EMS 14:40 → 3EI 18:29
PROVIDERS: ADMIT Psychiatry & Neurology Psychiatry; ATTEND Psychiatry & Neurology Psychiatry
DX: F33.2 Major depressive disorder, recurrent severe without psychotic features (principal); R45.851 Suicidal ideations; F15.20 Other stimulant dependence, uncomplicated; Z59.0 Homelessness; F17.210 Nicotine dependence, cigarettes, uncomplicated; L73.9 Follicular disorder, unspecified; D64.9 Anemia, unspecified; R45.87 Impulsiveness; R74.0 Nonspecific elevation of levels of transaminase and lactic acid dehydrogenase [LDH]; F12.10 Cannabis abuse, uncomplicated; R79.89 Other specified abnormal findings of blood chemistry; Z79.899 Other long term (current) drug therapy
CPT/HCPCS: 74019; 87070; 87081; 87205; G0480; G0481; Q0162

== ENCOUNTER 2020-01-31 11:07 | Inpatient (IN) | payer MEDICAID ==
[~2020-01-31] VITALS: Ht 182.9 cm; Wt 83.0 kg
[2020-01-31] MEDS ORDERED: ACETAMINOPHEN 500 MG TABLET PO ONE (12:00)
[2020-01-31 12:08] LABS: BASOPHILS % (AUTO) 0.7 % (0.0-2.0); EOSINOPHILS % (AUTO) 0.2 % (1.0-6.0); HEMATOCRIT 41.2 % (41-53); HEMOGLOBIN 13.2 g/dL (13.5-17.5); LYMPHOCYTES % (AUTO) 23.6 % (22.0-44.0); MEAN CORPUSCULAR HEMOGLOBIN 26.1 pg (26.0-34.0); MEAN CORPUSCULAR VOLUME 82 fL (80-100); MONOCYTES # (AUTO) 1.1 K/uL (0.1-1.0); MONOCYTES % (AUTO) 8.4 % (2.0-9.0); NEUTROPHILS # (AUTO) 8.6 K/uL (1.8-7.7); NEUTROPHILS % (AUTO) 67.1 % (40.0-70.0); PLATELET COUNT (AUTO) 243 K/uL (150-450); RED BLOOD CELL COUNT(AUTO) 5.05 MIL/uL (4.50-5.90); RED CELL DISTRIBUTION WIDTH 13.7 % (11.5-14.5)
[2020-01-31 12:24] LABS: ANION GAP 9 mmol/L (8-16); CARBON DIOXIDE 28 mmol/L (22-29); CHLORIDE 101 mmol/L (98-107); CREATININE 1.19 mg/dL (0.60-1.30); GLOMERULAR FILTR. RATE CALC > 60 mL/min (>60); GLUCOSE,RANDOM 172 mg/dL (70-110); POTASSIUM 4.5 mmol/L (3.5-5.1); SODIUM SERUM 138 mmol/L (136-145); UREA NITROGEN, BLOOD 37 mg/dL (7-18)
[2020-01-31 12:27] LABS: ALANINE AMINOTRANSFERASE 180 U/L (12-78); ALBUMIN 4.2 g/dL (3.4-5.0); ALKALINE PHOSPHATASE 98 U/L (46-116); ASPARTATE AMINOTRANSFERASE 495 U/L (15-37); BILIRUBIN,TOTAL 1.2 mg/dL (0.1-1.0); TOTAL PROTEIN, SERUM 7.5 g/dL (6.4-8.2)
[2020-01-31] MEDS ORDERED: HALOPERIDOL 5 MG TABLET PO PRN (13:30)
[2020-01-31] MEDS: LORazepam 2 MG TABLET PO PRN (17:56)
[2020-01-31] MEDS ORDERED: MAG HYDROX/AL HYDROX/SIMETH ES 30 ML SUSPENSION UDCUP PO PRN (22:00)
[2020-01-31] MEDS ORDERED: IBUPROFEN 400 MG TABLET PO PRN (22:00)
[2020-01-31] MEDS ORDERED: LOPERAMIDE HCL 2 MG CAPSULE PO PRN (22:00)
[2020-01-31] MEDS ORDERED: DOCUSATE SODIUM 100 MG CAPSULE PO PRN (22:00)
[2020-01-31] MEDS ORDERED: PETROLATUM,WHITE 28 GM JELLY TP PRN (22:00)
[2020-01-31] MEDS ORDERED: CloNIDine HCL 0.1 MG TABLET PO PRN (22:00)
[2020-01-31] MEDS ORDERED: NICOTINE 14 MG/24 HOUR PATCH TD PRN (22:00)
[2020-01-31] MEDS ORDERED: ACETAMINOPHEN 325 MG TABLET PO PRN (22:00)
[2020-01-31] MEDS ORDERED: ALBUTEROL SULFATE HFA 90 MCG/PUFF 8 GM INHALER IH PRN (22:00)
[2020-01-31] MEDS ORDERED: ONDANSETRON HCL 4 MG TABLET PO PRN (22:00)
[2020-01-31] MEDS ORDERED: GuaiFENesin/D-METHORPHAN [SUGAR-FREE] 200-20MG/10 ML SYRUP UDCUP PO PRN (22:00)
[2020-01-31] MEDS ORDERED: MAGNESIUM HYDROXIDE SUSPENSION 30 ML UDCUP PO PRN (22:00)
[2020-02-01 00:15] VITALS: BP 144/78
[2020-02-01] MEDS: ZOLPIDEM TARTRATE 10 MG TABLET PO PRN (00:33)
[2020-02-01 08:16] VITALS: BP 123/71
[2020-02-01 16:02] VITALS: BP 122/67
[2020-02-01] MEDS: QUEtiapine FUMARATE 100 MG TABLET PO SCH (20:01)
[2020-02-02 07:05] VITALS: BP 115/80
[2020-02-02 08:00] VITALS: BP 122/78
[2020-02-02] MEDS: BuPROPion HCL XL 150 MG ER TABLET PO SCH (08:21)
[2020-02-02 16:03] VITALS: BP 136/73
[2020-02-02] MEDS: LORazepam 2 MG TABLET PO PRN (19:25)
[2020-02-02] MEDS: QUEtiapine FUMARATE 100 MG TABLET PO SCH (20:00)
[2020-02-03 04:28] VITALS: BP 128/70
[2020-02-03] MEDS: BuPROPion HCL XL 150 MG ER TABLET PO SCH (08:28)
[2020-02-03 08:31] VITALS: BP 117/60
[2020-02-03 16:08] VITALS: BP 121/64
[2020-02-03] MEDS: LORazepam 2 MG TABLET PO PRN (20:13)
[2020-02-03] MEDS: QUEtiapine FUMARATE 100 MG TABLET PO SCH (20:13)
[2020-02-04 05:32] VITALS: BP 118/62
[2020-02-04] MEDS: BuPROPion HCL XL 150 MG ER TABLET PO SCH (08:15)
[2020-02-04 08:17] VITALS: BP 113/52
[2020-02-04 08:31] LABS: BASOPHILS % (AUTO) 0.9 % (0.0-2.0); EOSINOPHILS % (AUTO) 3.7 % (1.0-6.0); HEMATOCRIT 38.3 % (41-53); HEMOGLOBIN 12.5 g/dL (13.5-17.5); LYMPHOCYTES # (AUTO) 2.4 K/uL (1.0-4.8); LYMPHOCYTES % (AUTO) 52.9 % (22.0-44.0); MEAN CORPUSCULAR HEMOGLOBIN 26.8 pg (26.0-34.0); MEAN CORPUSCULAR HGB CONC 32.5 G/dL (31.0-37.0); MEAN CORPUSCULAR VOLUME 83 fL (80-100); MONOCYTES # (AUTO) 0.3 K/uL (0.1-1.0); MONOCYTES % (AUTO) 5.8 % (2.0-9.0); NEUTROPHILS # (AUTO) 1.7 K/uL (1.8-7.7); NEUTROPHILS % (AUTO) 36.7 % (40.0-70.0); PLATELET COUNT (AUTO) 227 K/uL (150-450); RED BLOOD CELL COUNT(AUTO) 4.64 MIL/uL (4.50-5.90); RED CELL DISTRIBUTION WIDTH 13.8 % (11.5-14.5)
[2020-02-04 16:17] VITALS: BP 108/62
[2020-02-04] MEDS: QUEtiapine FUMARATE 100 MG TABLET PO SCH (19:59)
[2020-02-04] MEDS: ZOLPIDEM TARTRATE 10 MG TABLET PO PRN (21:27)
[2020-02-05 05:36] VITALS: BP 110/68
[2020-02-05] MEDS: BuPROPion HCL XL 150 MG ER TABLET PO SCH (08:02)
[2020-02-05 08:12] VITALS: BP 124/77
== END 2020-02-05 08:20 | disposition home or self-care (01) | DRG 753 ==
LOC: EMS 11:09 → B2S 14:00
PROVIDERS: ADMIT Psychiatry & Neurology Psychiatry; ATTEND Psychiatry & Neurology Psychiatry
DX: F31.9 Bipolar disorder, unspecified (principal); R45.851 Suicidal ideations; D64.9 Anemia, unspecified; D72.829 Elevated white blood cell count, unspecified; F10.10 Alcohol abuse, uncomplicated; F19.10 Other psychoactive substance abuse, uncomplicated; F15.90 Other stimulant use, unspecified, uncomplicated; F17.210 Nicotine dependence, cigarettes, uncomplicated; R74.0 Nonspecific elevation of levels of transaminase and lactic acid dehydrogenase [LDH]; Z59.0 Homelessness
CPT/HCPCS: G0480

== ENCOUNTER 2020-04-07 22:53 | Inpatient (IN) | payer MEDICAID ==
[~2020-04-07] VITALS: Ht 180.3 cm; Wt 75.0 kg
[2020-04-08] LABS: BASOPHILS % (AUTO) 0.7 % (0.0-2.0); EOSINOPHILS % (AUTO) 4.4 % (1.0-6.0); HEMATOCRIT 41.4 % (41-53); HEMOGLOBIN 13.3 g/dL (13.5-17.5); LYMPHOCYTES % (AUTO) 47.1 % (22.0-44.0); MEAN CORPUSCULAR HGB CONC 32.2 G/dL (31.0-37.0); MEAN CORPUSCULAR VOLUME 84 fL (80-100); MONOCYTES # (AUTO) 0.4 K/uL (0.1-1.0); MONOCYTES % (AUTO) 5.9 % (2.0-9.0); NEUTROPHILS # (AUTO) 2.7 K/uL (1.8-7.7); NEUTROPHILS % (AUTO) 41.9 % (40.0-70.0); PLATELET COUNT (AUTO) 227 K/uL (150-450); RED BLOOD CELL COUNT(AUTO) 4.94 MIL/uL (4.50-5.90); RED CELL DISTRIBUTION WIDTH 15.1 % (11.5-14.5)
[2020-04-08 00:16] LABS: ANION GAP 9 mmol/L (8-16); CALCIUM, TOTAL 8.9 mg/dL (8.8-10.5); CARBON DIOXIDE 28 mmol/L (22-29); CHLORIDE 105 mmol/L (98-107); CREATININE 0.94 mg/dL (0.60-1.30); GLOMERULAR FILTR. RATE CALC > 60 mL/min (>60); GLUCOSE,RANDOM 108 mg/dL (70-110); POTASSIUM 3.7 mmol/L (3.5-5.1); SODIUM SERUM 142 mmol/L (136-145); UREA NITROGEN, BLOOD 11 mg/dL (7-18)
[2020-04-08 00:32] LABS: ALANINE AMINOTRANSFERASE 59 U/L (12-78); ALBUMIN 3.8 g/dL (3.4-5.0); ALKALINE PHOSPHATASE 74 U/L (46-116); ASPARTATE AMINOTRANSFERASE 60 U/L (15-37); BILIRUBIN,TOTAL 0.4 mg/dL (0.1-1.0); THYROID STIMULATING HORMONE 1.15 uIU/mL (0.36-3.74); TOTAL PROTEIN, SERUM 6.6 g/dL (6.4-8.2)
[2020-04-08] MEDS ORDERED: ZOLPIDEM TARTRATE 10 MG TABLET PO PRN (01:00)
[2020-04-08] MEDS: LORazepam 2 MG TABLET PO PRN ×2 (02:49→19:13)
[2020-04-08 03:35] VITALS: BP 128/76
[2020-04-08] MEDS ORDERED: PNEUMOCOCCAL VACCINE POLYVALENT 0.5 ML VIAL [PPSV23] IM ONE (03:45)
[2020-04-08] MEDS ORDERED: ONDANSETRON HCL 4 MG TABLET PO PRN (07:45)
[2020-04-08] MEDS ORDERED: ACETAMINOPHEN 325 MG TABLET PO PRN (07:45)
[2020-04-08] MEDS ORDERED: MAG HYDROX/AL HYDROX/SIMETH ES 30 ML SUSPENSION UDCUP PO PRN (07:45)
[2020-04-08] MEDS ORDERED: LOPERAMIDE HCL 2 MG CAPSULE PO PRN (07:45)
[2020-04-08] MEDS ORDERED: GuaiFENesin/D-METHORPHAN [SUGAR-FREE] 200-20MG/10 ML SYRUP UDCUP PO PRN (07:45)
[2020-04-08] MEDS ORDERED: ALBUTEROL SULFATE HFA 90 MCG/PUFF 8 GM INHALER IH PRN (07:45)
[2020-04-08] MEDS ORDERED: IBUPROFEN 400 MG TABLET PO PRN (07:45)
[2020-04-08] MEDS ORDERED: DOCUSATE SODIUM 100 MG CAPSULE PO PRN (07:45)
[2020-04-08] MEDS ORDERED: NICOTINE 14 MG/24 HOUR PATCH TD PRN (07:45)
[2020-04-08] MEDS ORDERED: PETROLATUM,WHITE 28 GM JELLY TP PRN (07:45)
[2020-04-08] MEDS ORDERED: CloNIDine HCL 0.1 MG TABLET PO PRN (07:45)
[2020-04-08] MEDS ORDERED: MAGNESIUM HYDROXIDE SUSPENSION 30 ML UDCUP PO PRN (07:45)
[2020-04-08 08:51] VITALS: BP 140/81
[2020-04-08 16:01] VITALS: BP 154/74
[2020-04-08] MEDS: HALOPERIDOL 5 MG TABLET PO PRN (19:13)
[2020-04-09 06:47] LABS: CHOL/HDL RATIO 3.7 (4.2-7.3)
[2020-04-09] MEDS: BuPROPion HCL XL 150 MG ER TABLET PO SCH (08:53)
[2020-04-09 09:30] VITALS: BP 117/72
[2020-04-09 16:30] VITALS: BP 122/65
[2020-04-09] MEDS: LORazepam 2 MG TABLET PO PRN (17:17)
[2020-04-10 08:00] VITALS: BP 114/60
[2020-04-10 09:43] VITALS: BP 114/60
[2020-04-10] MEDS: LORazepam 2 MG TABLET PO PRN ×2 (10:14→19:08)
[2020-04-10] MEDS: BuPROPion HCL XL 150 MG ER TABLET PO SCH (10:14)
[2020-04-10] MEDS: HALOPERIDOL 5 MG TABLET PO PRN ×2 (10:14→19:08)
[2020-04-10 16:01] VITALS: BP 131/60
[2020-04-10] MEDS: QUEtiapine FUMARATE 25 MG TABLET PO SCH (20:25)
[2020-04-11] MEDS: BuPROPion HCL XL 150 MG ER TABLET PO SCH (10:01)
[2020-04-11] MEDS: LORazepam 2 MG TABLET PO PRN ×2 (10:01→19:06)
[2020-04-11] MEDS: MULTIVITAMINS WITH MINERALS, THERAPEUTIC TABLET PO SCH (10:01)
[2020-04-11] MEDS: HALOPERIDOL 5 MG TABLET PO PRN (10:01)
[2020-04-11 10:03] VITALS: BP_SYST 106
[2020-04-11 16:00] VITALS: BP 120/61
[2020-04-11] MEDS: QUEtiapine FUMARATE 25 MG TABLET PO SCH (20:03)
[2020-04-12 08:52] VITALS: BP 115/87
[2020-04-12] MEDS: MULTIVITAMINS WITH MINERALS, THERAPEUTIC TABLET PO SCH (09:34)
[2020-04-12] MEDS: BuPROPion HCL XL 150 MG ER TABLET PO SCH (09:35)
[2020-04-12 12:25] VITALS: BP 148/78
[2020-04-12] MEDS ORDERED: QUET25TA PO (13:34)
== END 2020-04-12 14:45 | disposition home or self-care (01) | DRG 885 ==
LOC: EMS 22:53 → 3EI 04-08 00:49
PROVIDERS: ADMIT Psychiatry & Neurology Psychiatry; ATTEND Psychiatry & Neurology Psychiatry
DX: F31.9 Bipolar disorder, unspecified (principal); R45.851 Suicidal ideations; F17.200 Nicotine dependence, unspecified, uncomplicated; F19.10 Other psychoactive substance abuse, uncomplicated; Z59.0 Homelessness; Z91.14 Patient's other noncompliance with medication regimen
CPT/HCPCS: 84443; G0480

== ENCOUNTER 2020-10-06 12:46 | Inpatient (IN) | payer MEDICAID ==
[~2020-10-06] VITALS: Ht 180.3 cm; Wt 78.6 kg
[~2020-10-06 12:46] MED LIST changes: -QUET100T PO; +QUET25TA PO
[2020-10-06 15:10] LABS: BASOPHILS % (AUTO) 0.7 % (0.0-2.0); EOSINOPHILS % (AUTO) 2.3 % (1.0-6.0); HEMATOCRIT 41.8 % (41-53); HEMOGLOBIN 13.6 g/dL (13.5-17.5); LYMPHOCYTES # (AUTO) 2.7 K/uL (1.0-4.8); MEAN CORPUSCULAR HEMOGLOBIN 26.7 pg (26.0-34.0); MEAN CORPUSCULAR HGB CONC 32.6 G/dL (31.0-37.0); MEAN CORPUSCULAR VOLUME 82 fL (80-100); MONOCYTES # (AUTO) 0.6 K/uL (0.1-1.0); PLATELET COUNT (AUTO) 309 K/uL (150-450); RED BLOOD CELL COUNT(AUTO) 5.11 MIL/uL (4.50-5.90)
[2020-10-06 15:22] LABS: ANION GAP 6 mmol/L (8-16); CALCIUM, TOTAL 8.4 mg/dL (8.8-10.5); CARBON DIOXIDE 28 mmol/L (22-29); CHLORIDE 106 mmol/L (98-107); GLOMERULAR FILTR. RATE CALC > 60 mL/min (>60); GLUCOSE,RANDOM 70 mg/dL (70-110); SODIUM SERUM 140 mmol/L (136-145); UREA NITROGEN, BLOOD 13 mg/dL (7-18)
[2020-10-06 15:29] LABS: ALANINE AMINOTRANSFERASE 69 U/L (12-78); ALBUMIN 3.3 g/dL (3.4-5.0); ALKALINE PHOSPHATASE 92 U/L (46-116); ASPARTATE AMINOTRANSFERASE 36 U/L (15-37); BILIRUBIN,TOTAL 0.2 mg/dL (0.1-1.0)
[2020-10-06] MEDS ORDERED: QUEtiapine FUMARATE 100 MG TABLET PO PRN (21:00)
[2020-10-06 22:19] LABS: COVID AG,FIA SOURCE NASOPHARYNGEAL
[2020-10-07] MEDS: ZOLPIDEM TARTRATE 10 MG TABLET PO PRN ×2 (00:33→20:43)
[2020-10-07 00:40] VITALS: BP 150/92
[2020-10-07 07:48] LABS: CHOL/HDL RATIO 4.3 (4.2-7.3)
[2020-10-07] MEDS ORDERED: PETROLATUM,WHITE 28 GM JELLY TP PRN (08:00)
[2020-10-07] MEDS ORDERED: NICOTINE 14 MG/24 HOUR PATCH TD PRN (08:00)
[2020-10-07] MEDS ORDERED: MAG HYDROX/AL HYDROX/SIMETH ES 30 ML SUSPENSION UDCUP PO PRN (08:00)
[2020-10-07] MEDS ORDERED: MAGNESIUM HYDROXIDE SUSPENSION 30 ML UDCUP PO PRN (08:00)
[2020-10-07] MEDS ORDERED: CloNIDine HCL 0.1 MG TABLET PO PRN (08:00)
[2020-10-07] MEDS ORDERED: ALBUTEROL SULFATE HFA 90 MCG/PUFF 8 GM INHALER IH PRN (08:00)
[2020-10-07] MEDS ORDERED: DOCUSATE SODIUM 100 MG CAPSULE PO PRN (08:00)
[2020-10-07] MEDS ORDERED: ACETAMINOPHEN 325 MG TABLET PO PRN (08:00)
[2020-10-07 09:16] VITALS: BP 111/58
[2020-10-07] MEDS: BuPROPion HCL XL 150 MG ER TABLET PO SCH (10:44)
[2020-10-07] MEDS: LORazepam 2 MG TABLET PO PRN (15:57)
[2020-10-07 16:40] VITALS: BP 125/82
[2020-10-08 08:44] VITALS: BP 105/57
[2020-10-08] MEDS: BuPROPion HCL XL 150 MG ER TABLET PO SCH (09:09)
[2020-10-08] MEDS: LORazepam 2 MG TABLET PO PRN (16:03)
[2020-10-08 16:16] VITALS: BP 136/86
[2020-10-08] MEDS: ZOLPIDEM TARTRATE 10 MG TABLET PO PRN (20:43)
[2020-10-09] MEDS: LORazepam 2 MG TABLET PO PRN ×2 (08:35→16:29)
[2020-10-09] MEDS: BuPROPion HCL XL 150 MG ER TABLET PO SCH (08:35)
[2020-10-09 09:27] VITALS: BP 128/61
[2020-10-09 16:00] VITALS: BP 150/73
[2020-10-09] MEDS: ZOLPIDEM TARTRATE 10 MG TABLET PO PRN (20:09)
[2020-10-09 23:30] VITALS: BP 137/77
[2020-10-09] MEDS: ONDANSETRON HCL 4 MG TABLET PO PRN ×2 (23:31→23:54)
[2020-10-10] MEDS: BuPROPion HCL XL 150 MG ER TABLET PO SCH (10:33)
[2020-10-10 16:22] VITALS: BP 136/78
[2020-10-11] MEDS: BuPROPion HCL XL 150 MG ER TABLET PO SCH (08:20)
[2020-10-11 12:03] LABS: COVID AG,FIA SOURCE NASOPHARYNGEAL
[2020-10-11] MEDS: LORazepam 2 MG TABLET PO PRN (15:58)
[2020-10-11 16:05] VITALS: BP 110/70
[2020-10-12 03:11] VITALS: BP 118/79
[2020-10-12] MEDS: BuPROPion HCL XL 150 MG ER TABLET PO SCH (08:43)
[2020-10-12 10:09] VITALS: BP 137/69
[2020-10-12 16:06] VITALS: BP 114/77
[2020-10-12] MEDS: LORazepam 2 MG TABLET PO PRN (16:57)
[2020-10-13] MEDS: BuPROPion HCL XL 150 MG ER TABLET PO SCH (08:40)
[2020-10-13 08:44] VITALS: BP 100/55
[2020-10-13 08:55] VITALS: BP 100/55
[2020-10-13 09:42] VITALS: BP 100/55
[2020-10-13] MEDS: GuaiFENesin/D-METHORPHAN [SUGAR-FREE] 200-20MG/10 ML SYRUP UDCUP PO PRN (09:44)
[2020-10-13] MEDS: IBUPROFEN 400 MG TABLET PO PRN (09:44)
[2020-10-13] MEDS ORDERED: BENZOCAINE/MENTHOL LOZENGE PO PRN (10:00)
[2020-10-13 11:59] LABS: COVID AG,FIA SOURCE NASOPHARYNGEAL
[2020-10-13] MEDS: AZITHROMYCIN 500 MG TABLET PO SCH (12:18)
[2020-10-13 16:08] VITALS: BP 138/67
[2020-10-13] MEDS: LORazepam 2 MG TABLET PO PRN (16:29)
[2020-10-13] MEDS: LOPERAMIDE HCL 2 MG CAPSULE PO PRN (16:29)
[2020-10-13] MEDS: ZOLPIDEM TARTRATE 10 MG TABLET PO PRN (20:02)
[2020-10-14] MEDS: IBUPROFEN 400 MG TABLET PO PRN (01:01)
[2020-10-14] MEDS: GuaiFENesin/D-METHORPHAN [SUGAR-FREE] 200-20MG/10 ML SYRUP UDCUP PO PRN (01:04)
[2020-10-14 01:06] VITALS: BP 141/73
[2020-10-14 08:49] VITALS: BP 116/57
[2020-10-14] MEDS: BuPROPion HCL XL 150 MG ER TABLET PO SCH (09:01)
[2020-10-14] MEDS: AZITHROMYCIN 500 MG TABLET PO SCH (09:01)
[2020-10-14] MEDS: LORazepam 2 MG TABLET PO PRN (13:57)
[2020-10-14] MEDS: LOPERAMIDE HCL 2 MG CAPSULE PO PRN (13:57)
[2020-10-14] MEDS ORDERED: AZIT-104 PO (14:46)
== END 2020-10-14 16:15 | disposition home or self-care (01) | DRG 753 ==
LOC: EMS 12:52 → 3EI 20:57 → 3EX 10-11 21:27
DX: F31.9 Bipolar disorder, unspecified (principal); R45.851 Suicidal ideations; Z59.0 Homelessness; F41.9 Anxiety disorder, unspecified; R03.0 Elevated blood-pressure reading, without diagnosis of hypertension; R10.13 Epigastric pain; F19.10 Other psychoactive substance abuse, uncomplicated; F12.90 Cannabis use, unspecified, uncomplicated; F15.90 Other stimulant use, unspecified, uncomplicated; Z79.899 Other long term (current) drug therapy; Z20.828 Contact with and (suspected) exposure to other viral communicable diseases
CPT/HCPCS: 87426; G0378; G0480; Q0162; 36415-L1; 36415-TC; 71046; 71046-TC; 80061-TC